=== PATIENT | female | born 1970 | race Caucasian/White ===

== ENCOUNTER → 2016-04-20 | Outpatient (CLI) | payer OTHER ==
[~2016-04-20] MED LIST: ATEN-173 PO
--- NOTE | 2016-04-20 12:43 | MAMMOGRAPHY REPORT ---
BILATERAL DIGITAL SCREENING MAMMOGRAM TOMOSYNTHESIS WITH CAD: 04/20/2016 CLINICAL HISTORY: Routine screening. Patient has no complaints. TECHNIQUE: Breast tomosynthesis in addition to standard 2D mammography was performed. Current study was also evaluated with a Computer Aided Detection (CAD) system. COMPARISON: Comparison is made to exams dated: 04/29/2015 ultrasound biopsy, 04/29/2015 ultrasound, mammogram, 01/27/2014 mammogram, 01/22/2013 mammogram, and 01/11/2012 mammogram - [facility]. BREAST COMPOSITION: The tissue of both breasts is almost entirely fatty. FINDINGS: There are no suspicious masses, calcifications, or areas of architectural distortion note d in either breast. There has been no significant interval change compared to prior exams. A biops y marker clip is again noted in the left lower inner quadrant. IMPRESSION: ACR BI-RADS CATEGORY 2: BENIGN There is no mammographic evidence of malignancy. A 1 year screening mammogram is recommended. The p atient will receive written notification of the results. Approximately 10% of breast cancers are not detected with mammography. A negative mammographic repor t should not delay biopsy if a clinically suggestive mass is present. Holley Nobles M.D. /:04/20/2016 07:49:07 Hoop Expander: Mayra Kang, [facility] letter sent: Normal 1/2 BI-RADS Code: ACR BI-RADS Category 2: Benign
== END | disposition home or self-care (01) ==
LOC: C.MAMM 07:18
PROVIDERS: ATTEND Family Medicine
DX: Z12.31 Encounter for screening mammogram for malignant neoplasm of breast (principal)

== ENCOUNTER → 2016-08-23 | Outpatient (CLI) | payer OTHER ==
[2016-08-23 12:48] LABS: HEMATOCRIT 39.4 % (37-47); MEAN CELL VOLUME 88.1 fL (80-100); MEAN CORPUSCULAR HEMOGLOBIN 28.6 pg (25-34); MEAN CORPUSCULAR HGB CONC 32.5 g/dl (32-36); PLATELET COUNT 330 K/uL (130-400); RED BLOOD COUNT 4.47 M/uL (4.2-5.4); WHITE BLOOD COUNT 8.27 K/uL (4.8-10.8)
[2016-08-23 12:58] LABS: BLOOD UREA NITROGEN 17 mg/dl (7-18); BUN/CREATININE RATIO 24.9 (10-20); CARBON DIOXIDE 26 mmol/L (21-32); CHLORIDE 107 mmol/L (98-107); CHOLESTEROL 202 mg/dl (0-200); CREATININE 0.68 mg/dl (0.60-1.20); GLUCOSE 77 mg/dl (70-99); POTASSIUM 3.8 mmol/L (3.5-5.1); SODIUM 141 mmol/L (136-145); TRIGLYCERIDES 113 mg/dl (0-150); VERY LOW DENSITY LIPOPROT CALC 23 mg/dl
[2016-08-23 13:00] LABS: CALCIUM 9.2 mg/dl (8.5-10.1)
[2016-08-23 13:02] LABS: CHOLESTEROL/HDL RATIO 3.9; HDL CHOLESTEROL 52 mg/dl; LDL CHOLESTEROL CALCULATED 127 mg/dl
[2016-08-23 13:37] LABS: COMPLETE YES; EOS % 2.3 %; IG% 0.1 %; LYMPH % 28.3 %; LYMPH ABS # 2.34 K/uL (1.2-3.4); NEUT % 63.3 %
== END | disposition home or self-care (01) ==
LOC: C.LABBFT 07:57
PROVIDERS: ATTEND Family Medicine
DX: I10 Essential (primary) hypertension (principal); E61.1 Iron deficiency; E78.4 Other hyperlipidemia; E53.8 Deficiency of other specified B group vitamins; E55.9 Vitamin D deficiency, unspecified

== ENCOUNTER → 2017-04-26 | Outpatient (CLI) | payer OTHER ==
--- NOTE | 2017-04-26 13:26 | MAMMOGRAPHY REPORT ---
BILATERAL DIGITAL SCREENING MAMMOGRAM TOMOSYNTHESIS WITH CAD: 04/26/2017 CLINICAL HISTORY: Routine screening. Patient has no complaints. TECHNIQUE: Breast tomosynthesis in addition to standard 2D mammography was performed. Current study was also evaluated with a Computer Aided Detection (CAD) system. COMPARISON: Comparison is made to exams dated: 04/20/2016 mammogram, 04/29/2015 mammogram, 04/15/2015 m ammogram, 01/27/2014 mammogram, 01/22/2013 mammogram, and 01/11/2012 mammogram - [facility]. BREAST COMPOSITION: The tissue of both breasts is almost entirely fatty. FINDINGS: No suspicious masses, calcifications, or areas of architectural distortion are noted in ei ther breast. There has been no significant interval change compared to prior exams. A biopsy marker clip is again noted within the left lower inner quadrant. IMPRESSION: ACR BI-RADS CATEGORY 2: BENIGN There is no mammographic evidence of malignancy. A 1 year screening mammogram is recommended. The pa tient will receive written notification of the results. Approximately 10% of breast cancers are not detected with mammography. A negative mammographic report should not delay biopsy if a clinically suggestive mass is present. Holley Nobles M.D. /:04/26/2017 07:44:41 Stem Threshing Machine Operator: Mayra ZAVALA(Sagrario)(M), [facility] letter sent: Normal 1/2 BI-RADS Code: ACR BI-RADS Category 2: Benign
== END | disposition home or self-care (01) ==
LOC: C.MAMM 07:21
PROVIDERS: ATTEND Internal Medicine
DX: Z12.31 Encounter for screening mammogram for malignant neoplasm of breast (principal)

== ENCOUNTER 2024-09-18 10:00 | Observation (INO) ==
--- NOTE | 2024-08-18 13:21 | PAT Medication Instructions ---
Medication Instructions Date of Service August 18, 2024 Home Medications Medication Instructions Recorded diclofenac sodium 1 % topical gel 2 gm topical QID #100 grams 01/14/19 (Voltaren) mupirocin 2 % topical ointment 1 applic topical BID #15 grams 05/23/22 hydrocodone-homatropine 5 mg-1.5 See Rx Instructions PO Q6H PRN 03/28/23 mg/5 mL oral solution (Hydromet) cough #250 mL sulfamethoxazole 800 1 tab PO BID 5 days #10 tabs 05/09/23 mg-trimethoprim 160 mg tablet (Bactrim DS) fluconazole 150 mg tablet 150 mg PO Q3D 2 doses #2 tabs 05/12/24 cholecalciferol (vitamin D3) 125 mcg (5,000 unit) tablet (Vitamin D3) 5,000 unit PO QAM cyanocobalamin (vitamin B-12) 1,000 mcg tablet (Vitamin B-12) 1,000 mcg PO QAM ferrous sulfate 325 mg (65 mg iron) tablet (iron) 325 mg PO 3XWK losartan 50 mg-hydrochlorothiazide 12.5 mg tablet 1 tab PO QAM ibuprofen 600 mg tablet 600 mg PO Q6H PRN Pain naproxen sodium 220 mg tablet (Aleve) 440 mg PO BID PRN Pain diclofenac sodium 1 % topical gel (Voltaren) 2 gm topical QID mupirocin 2 % topical ointment 1 applic topical BID hydrocodone-homatropine 5 mg-1.5 mg/5 mL oral solution (Hydromet) See Rx Instructions PO Q6H PRN cough sulfamethoxazole 800 mg-trimethoprim 160 mg tablet (Bactrim DS) 1 tab PO BID fluconazole 150 mg tablet 150 mg PO Q3D docusate sodium 100 mg tablet 100 mg PO DAILY rizatriptan 10 mg tablet 10 mg PO UD PRN Migraine Headache rosuvastatin 10 mg tablet 10 mg PO QAM tirzepatide (weight loss) 5 mg/0.5 mL subcutaneous pen injector (Zepbound) 5 mg subcut WK valacyclovir 1 gram tablet 1,000 mg PO TID PRN Cold Sores Continue as directed sulfamethoxazole 800 mg-trimethoprim 160 mg tablet (Bactrim DS) 1 tab PO BID fluconazole 150 mg tablet 150 mg PO Q3D ASK your surgeon for instructions ibuprofen 600 mg tablet 600 mg PO Q6H PRN Pain naproxen sodium 220 mg tablet (Aleve) 440 mg PO BID PRN Pain STOP taking 24 hours before surgery diclofenac sodium 1 % topical gel (Voltaren) 2 gm topical QID mupirocin 2 % topical ointment 1 applic topical BID STOP 7 days prior to surgery tirzepatide (weight loss) 5 mg/0.5 mL subcutaneous pen injector (Zepbound) 5 mg subcut WK DO NOT take the morning of surgery cholecalciferol (vitamin D3) 125 mcg (5,000 unit) tablet (Vitamin D3) 5,000 unit PO QAM cyanocobalamin (vitamin B-12) 1,000 mcg tablet (Vitamin B-12) 1,000 mcg PO QAM ferrous sulfate 325 mg (65 mg iron) tablet (iron) 325 mg PO 3XWK losartan 50 mg-hydrochlorothiazide 12.5 mg tablet 1 tab PO QAM docusate sodium 100 mg tablet 100 mg PO DAILY hydrocodone-homatropine 5 mg-1.5 mg/5 mL oral solution (Hydromet) See Rx Ins tructions PO Q6H PRN cough Take morning of surgery With a small sip of water, OTHERWISE NOTHING TO EAT OR DRINK AFTER MIDNIGHT: rizatriptan 10 mg tablet 10 mg PO UD PRN Migraine Headache (if needed) rosuvastatin 10 mg tablet 10 mg PO QAM valacyclovir 1 gram tablet 1,000 mg PO TID PRN Cold Sores (if needed) Take evening before surgery hydrocodone-homatropine 5 mg-1.5 mg/5 mL oral solution (Hydromet) See Rx Instructions PO Q6H PRN cough (if needed) rizatriptan 10 mg tablet 10 mg PO UD PRN Migraine Headache (if needed) valacyclovir 1 gram tablet 1,000 mg PO TID PRN Cold Sores (if needed) Other Notes If you have any questions please call us at [phone] or [phone] or [phone] or [phone]
--- NOTE | 2024-08-25 15:03 | Anesthesiology Consultation ---
Date of Service August 25, 2024 Assessment & Plan (1) Encounter for pre-operative examination: Chart Review Chart Review: Acceptable Risk for Surgery and Patient seen in Pre Admission Testing - Check test AM DOS - Patient is not an ideal OPJ candidate- currently 23 hour obs - Patient takes Zepbound for weight loss. Patient informed to stop Zepbound 7 days prior to surgery. Last dose of Zepbound scheduled 09/07/24. Will be off Zepbound x 11 days prior to DOS on 09/18/24 Per PAT appt on 08/25/24, no recent illness/disease exposures, illness related symptoms, or recent illness/disease positive tests. Will leave to surgeon's discretion if preop Covid testing needed Teaching & Discussion Pre-Anesthesia Teaching/Discussion Notes: Instructed NPO after midnight before surgery,except medications with 15 cc of water. Medication instructions provided according to the PAT guidelines. History Surgery Operation Date: 09/18/24 07:00 Proposed Procedures p Right Total Knee Arthroplasty - Florentin Barrios, DO Height/Weight Height: 5 ft 7 in Weight: 156.1 kg Allergies Allergy/AdvReac Type Severity Reaction Status Date / Time No Known Allergies Allergy Unknown Verified 08/14/24 13:23 Medications Home Medications Medication Instructions Recorded Confirmed Last Taken cholecalciferol (vitamin D3) 125 5,000 unit PO QAM 01/17/18 08/14/24 02/06/18 06:00 mcg (5,000 unit) tablet (Vitamin D3) cyanocobalamin (vitamin B-12) 1,000 mcg PO QAM 01/17/18 08/14/24 02/06/18 06:00 1,000 mcg tablet (Vitamin B-12) ferrous sulfate 325 mg (65 mg 325 mg PO 3XWK 01/17/18 08/14/24 02/05/18 06:00 iron) tablet (iron) losartan 50 mg-hydrochlorothiazide 1 tab PO QAM 01/17/18 08/14/24 02/06/18 06:00 12.5 mg tablet ibuprofen 600 mg tablet 600 mg PO Q6H PRN Pain 11/21/18 08/14/24 Unknown naproxen sodium 220 mg tablet 440 mg PO BID PRN Pain 11/21/18 08/14/24 Unknown (Aleve) diclofenac sodium 1 % topical gel 2 gm topical QID #100 grams 01/14/19 08/14/24 Unknown (Voltaren) mupirocin 2 % topical ointment 1 applic topical BID #15 grams 05/23/22 08/14/24 Unknown hydrocodone-homatropine 5 mg-1.5 See Rx Instructions PO Q6H PRN 03/28/23 08/14/24 Unknown mg/5 mL oral solution (Hydromet) cough #250 mL docusate sodium 100 mg tablet 100 mg PO DAILY 08/14/24 08/14/24 Unknown rizatriptan 10 mg tablet 10 mg PO UD PRN Migraine Headache 08/14/24 08/14/24 Unknown rosuvastatin 10 mg tablet 10 mg PO QAM 08/14/24 08/14/24 Unknown tirzepatide (weight loss) 5 mg/0.5 5 mg subcut WK 08/14/24 08/14/24 Unknown mL subcutaneous pen injector (Zepbound) valacyclovir 1 gram tablet 1,000 mg PO TID PRN Cold Sores 08/14/24 08/14/24 Unknown Past Medical History Medical History (Updated 08/26/24 @ 10:45 by Cari Hurst PA-C) Arthritis Constipation medication induced (due to Zepbound) History of COVID-17 June 2022- symptoms resolved History of paroxysmal supraventricular tachycardia had ablation in 2010, no issues since, no longer has to see cardio HTN (hypertension) Hx of migraines Iron deficiency anemia hx of JOE (obstructive sleep apnea) Hx of sleep study- mild JOE - no device needed- has since lost weight Exercise / Class Metabolic Activity II 4-5 Yardwork/Stairs/Walk up hill (one flight of stairs - no chest pain or SOB ) Past Family History Family History Father Type 2 diabetes mellitus Mother Type 2 diabetes mellitus Past Surgical History Surgical History History of adenoidectomy History of arthroscopy RT KNEE History of cholecystectomy History of colonoscopy History of gastric bypass RUEL N Y (2002) History of radiofrequency ablation procedure for cardiac arrhythmia 2010 (PSVT) History of right hip replacement Oct 2019 History of tonsillectomy History of tooth extraction Hx of LASIK BILATERAL Nausea and vomiting after administration of anesthetic agent Past Anesthesia History No Hx of Anesthesia Complications (with exception to PONV ) and No Family Hx of Anesthesia Complications History of PONV History of PONV (improved when pretreated with IV anti nausea medication) and Hx of Motion Sickness (mild ) Social History Smoking Status: Never smoker Do You Dip or Chew Tobacco: No Hx Alcohol Use: Yes Alcohol type: wine alcohol intake frequency: holidays/special occasions only Hx Substance Use: No substance use type: does not use Review of Systems Patient denies chest pain, shortness of breath, dyspnea on exertion, reflux, cough, wheezing, palpitations. No hx of seizures, stroke, IL. No hx of blood clots or blood transfusions Physical Exam Vital Signs VITALS BP 121/82 P 69 TEMP 97.7 SP02 98% RESP 16 Constitutional no acute distress ENMT Mouth: no TMJ clicking Thyromental Distance: > or= 3.5 Finger Breadths (3.5) Mallampati Class: I Permanent implants to side teeth and molars Crowns to side teeth and molars Neck neck extension not limited Respiratory normal respiratory effort; no respiratory distress Auscultation: lungs clear to auscultation bilaterally; no wheezes Cardiovascular Rate/Rhythm: regular rate and regular rhythm Heart Sounds: no murmur Vessels: no carotid bruit Musculoskeletal Spine: no pain with cervical ROM Extremities: extremities normal to inspection Psychiatric Orientation: alert Lab Results Anesthesia Preop Results Results Anesthesia Widget: WBC 9.90 K/ul (4.8-10.8) 08/25/24 Hgb 13.0 g/dl (12.0-16.0) 08/25/24 Hct 39.6 % (37.0-47.0) 08/25/24 Plt 300 K/uL (130-400) 08/25/24 Na 139 mmol/L (136-145) 08/25/24 K 4.4 mmol/L (3.5-5.1) 08/25/24 Cl 103 mmol/L (98-107) 08/25/24 CO2 30 mmol/L (21-32) 08/25/24 BUN 16 mg/dl (6-23) 08/25/24 Creat 0.64 mg/dl (0.6-1.2) 08/25/24 Glucose Level 99 mg/dl (70-99(Fasting)) 08/25/24 PT 10.4 Seconds (9.0-12.0) 08/25/24 PTT 29 Seconds (21-31) 08/25/24 INR 1.0 (0.9-1.1) 08/25/24 Blood Type O Negative 08/25/24 Antibody Screen NEGATIVE 08/25/24 Testing Electrocardiogram Date: 08/25/24 Findings: + NSR @ (63bpm) Poor R wave progression, consider anterior IL vs lead placement vs LVH When compared to EKG from Jan 24, 2018- no significant change was found per cardio Chest X-Ray Date: 08/25/24 Findings: + NAD
[~2024-09-18 10:00] MED LIST changes: -ATEN-173 PO; +ROPIVACAINE 0.5% 5 MG/ML 30 ML VIAL ONE
[2024-09-18] MEDS ORDERED: MIDAZOLAM HCL 1 MG/ML 2ML VIAL ONE ×2 (10:14→12:31)
[2024-09-18] MEDS ORDERED: ONDANSETRON INJ 2 MG/ML 2 ML VIAL ONE (10:14)
[2024-09-18] MEDS ORDERED: PROPOFOL IV EMULSION 10 MG/ML 20 ML VIAL IV ONE ×5 (10:14→13:13)
[2024-09-18] MEDS: LR 60ML/HR IV SCH (10:28)
[2024-09-18] MEDS: FAMOTIDINE 20 MG TAB PO SCH (10:28)
[2024-09-18] MEDS: dexAMETHasone**PF** 10 MG/ML VIAL IV SCH (10:28)
[2024-09-18] MEDS: ACETAMINOPHEN 500 MG TAB PO SCH ×2 (10:28→21:18)
[2024-09-18] MEDS: GABAPENTIN 900 MG DOSE PO SCH (10:28)
--- NOTE | 2024-09-18 11:05 | History & Physical Bridge Note ---
Date of Service September 18, 2024 History & Physical Bridge Note I have examined the patient, reviewed the History & Physical and in the interval since the performance of the History & Physical I have noted the following changes of clinical significance: no changes noted
[2024-09-18] MEDS: LR 500ML BOLUS, THEN 15ML/HR IV SCH (11:08)
[2024-09-18] MEDS: TRANEXAMIC ACID 1,000 MG **IV Pre-op IV SCH (12:06)
[2024-09-18] MEDS: ceFAZolin 3000MG 3,000 MG/72.5 ML BAG IV SCH (12:25)
[2024-09-18] MEDS ORDERED: ePHEDrine sulfate 50 MG/ML AMP IV PRN (12:44)
[2024-09-18] MEDS ORDERED: HYDROmorphone INJ 1 MG/ML SYRINGE IV PRN (12:44)
[2024-09-18] MEDS ORDERED: ATROPINE SULFATE 0.1 MG/ML 10ML SYR IV PRN (12:44)
[2024-09-18] MEDS ORDERED: ONDANSETRON INJ 2 MG/ML 2 ML VIAL IV PRN ×2 (12:44→15:56)
[2024-09-18] MEDS ORDERED: KETOROLAC 30 MG/ML VIAL IV PRN (12:44)
[2024-09-18] MEDS: ORTHO JOINT ANESTHETIC ONE (12:47)
[2024-09-18] MEDS: ROPIV 0.5% 246mg, Ketorolac 30mg, EPINEPHrine 0.5mg in NSS INFIL SCH (12:47)
[2024-09-18] MEDS: TRANEXAMIC ACID 1,000 MG **IV Intra-op IV SCH (13:35)
--- NOTE | 2024-09-18 13:40 | Operative Report ---
PG Post Operative Report Pre & Post Diagnosis Operation Date: 09/18/24 12:00 Pre-Op Diagnosis: Right Knee Arthritis Post-Op Diagnosis: Right Knee Arthritis I identified the patient and participated in the time-out.: Yes Procedure Operation Date: 09/18/24 12:00 Actual Procedures p Right Total Knee Arthroplasty(Right) - Florentin Barrios DO Surgeon Florentin Barrios DO Certified Lactation Educator Von Antunez PA-C Estimated Blood Loss 50 Findings Consistent with Post-Op Diagnosis Specimens Right femoral tibial Description of Procedure Implants used: I used a Taiwo Persona total knee arthroplasty system with a size 8 standard PS femur, E tibia, 28 oval patella, and a size 10 CPS polyethylene bearing. All components were cemented in place with Biomet cement. Cari arrived [facility] for the above procedure. She was seen in the preoperative holding area and the operative extremity was identified and signed. She was given a preoperative antibiotic, TXA, a spinal anesthetic and an adductor nerve block. She was taken back to the operating room and laid on the table in supine position. She was given basic sedation. The operative knee was then prepped and draped in sterile fashion. A timeout was done, and the patient and the operative extremity was properly identified. A midline incision was made directly over the patella. Dissection was taken down to the extensor mechanism. A medial parapatellar arthrotomy was used. The medial retinaculum was released and the fat pad was mostly excised. The knee was flexed and the ACL, PCL, and meniscus were removed. A drill was sent down the center of the femoral canal followed by an intramedullary ceci. Off that ceci a distal femoral cutting block was placed. 9 mm was resected off the distal femur at 5 of valgus. A posterior referencing AP sizing guide was then placed on the distal femur. The femur measured to be a size 8. 2 drill holes were placed in 3 of external rotation. A 4-in-1 cutting block was then impacted into place. Anterior, posterior, and chamfer cuts were then made. The proximal tibia was then exposed. An external tibial alignment guide was placed. A tibial cut guide was then anchored in place and the proximal tibia was then resected. The posterior aspect of the knee was then opened up and any additional meniscus fragments and osteophytes were removed. The tibia measured to be a size E. The tibial plate was then placed in the appropriate rotation and the tibia was drilled and punched. Trial components were then placed. I used a size 12 CPS polyethylene insert. The knee was brought through a full range of motion and felt to be stable. The peg holes for the femoral component were then drilled. The patella was then everted and 9 mm was resected off the posterior aspect of the patella. The patella measured to be a size 28 oval. 3 peg holes were then drilled. A trial patella was placed. The knee was once again brought through a full range of motion and felt to be stable. Trial components were then removed. The surrounding soft tissues were injected with 100 cc of an orthopedic pain control cocktail. All components were then cemented into place with Biomet cement. The final polyethylene insert was then snapped into place. Once cement was dry the tourniquet was deflated. Hemostasi s was obtained. A dilute betadyne lavage was then done for 3 minutes. The joint was then irrigated with normal saline solution. The medial parapatellar arthrotomy was then closed with #1 Vicryl suture. The skin was closed with 2-0 Vicryl, 3-0V lock suture, and yael. A soft compressive dressing was placed. She was then transferred to a hospital bed and taken to the postanesthesia care unit in stable condition. She tolerated the procedure well. Von Antunez PA-C, was present for the entire procedure. He was critical for patient positioning, prepping, draping, retraction exposure, wound closure and application of sterile dressing. I attest to the content of the Intraoperative Record and any orders documented therein. Any exceptions are noted below.
--- NOTE | 2024-09-18 14:38 | Anesthesiology Progress Note ---
Date of Service September 18, 2024 Anesthesia Post Procedure Vital Signs Vital Signs: Temp Pulse Pulse Resp BP Pulse Ox O2 Del Method 09/18/24 14:30 53 L 12 134/86 98 Room Air 09/18/24 14:20 59 L 18 117/82 97 Room Air 09/18/24 14:16 36.0 C L 60 14 127/84 94 Room Air 09/18/24 10:20 36.5 C 68 20 139/83 98 Room Air Pain Intensity Right Knee: Pain Intensity: 6 Transfer of Care Handoff Completed per policy Notes Mental Status: alert / awake / arousable Patient Amnestic to Procedure: Yes Nausea / Vomiting: adequately controlled Pain: adequately controlled Airway Patency, RR, SpO2: stable & adequate BP & HR: stable & adequate Hydration State: stable & adequate Neuraxial Anesthesia: was administered and sensory block is resolving Anesthetic Complications: no major complications apparent
--- NOTE | 2024-09-18 15:33 | XRay Report ---
XR knee RT 1 or 2V routine CLINICAL HISTORY: Surgical Post Op COMPARISON: None FINDINGS: Right knee prosthesis shows no hardware complication. There is expected soft tissue gas. S kin yael are present anteriorly. IMPRESSION: Unremarkable postoperative exam. ACT 112: Negative or not required by law. Electronically signed by: Jerald Warren M.D. 09/18/2024 3:31 PM
[2024-09-18] MEDS ORDERED: NALOXONE HCL 0.4 MG/1 ML VIAL/CARP IV PRN (15:56)
[2024-09-18] MEDS ORDERED: METOCLOPRAMIDE HCL INJ 5 MG/ML 2 ML VIAL IV PRN (15:56)
[2024-09-18] MEDS ORDERED: MAGNESIUM HYDROXIDE SUSP 30 ML UDC PO PRN (15:56)
[2024-09-18] MEDS ORDERED: bisacodyL 10 MG SUPP PR PRN (15:56)
[2024-09-18] MEDS ORDERED: diphenhydrAMINE Capsule 25 MG CAP PO PRN (15:56)
[2024-09-18] MEDS ORDERED: RIZATRIPTAN BENZOATE 10 MG TAB PO PRN (15:56)
[2024-09-18] MEDS ORDERED: HYDROmorphone INJ 0.5 MG/0.5 ML SYR IV PRN (15:56)
[2024-09-18] MEDS: LOSARTAN/HCTZ 50/12.5MG TAB PO SCH (16:48)
[2024-09-18] MEDS: KETOROLAC TROMETHAMINE 15 MG/ML VIAL IV SCH (16:48)
[2024-09-18] MEDS: SODIUM CHLORIDE 0.9% 1,000 ML IV SCH (16:48)
[2024-09-18] MEDS: oxyCODONE HCL IR 5 MG TAB (IMMEDIATE RELEASE) PO PRN (17:50)
[2024-09-18] MEDS: SENNA 8.6 MG TAB PO SCH (19:50)
[2024-09-18] MEDS: ASPIRIN 81 MG ECTAB PO SCH (21:20)
[2024-09-18] MEDS: ceFAZolin 2000MG 2,000 MG/15 ML SYR IV SCH (21:20)
[2024-09-18] MEDS: DOCUSATE SODIUM 100 MG CAP PO SCH (21:20)
[2024-09-19 06:06] LABS: Hematocrit (blood only) 32.6 % (37.0-47.0); Hemoglobin 11.2 g/dl (12.0-16.0); Mean Corpuscular Hemoglobin 29.5 pg (25.0-34.0); Mean Corpuscular Hgb Conc 34.4 g/dL (32.0-36.0); Mean Corpuscular Volume 85.8 fL (80.0-100.0); Mean Platelet Volume 9.9 fL (9.4-12.4); Platelet Count 304 K/uL (130-400); RDW Coefficient of Variation 12.8 % (11.5-14.5); RDW Standard Deviation 39.9 fL (36.4-46.3); White Blood Count 17.88 K/ul (4.8-10.8)
[2024-09-19 06:20] LABS: BUN Creatinine Ratio 26.7 (10-20); Calcium 8.4 mg/dl (8.6-10.3); Creatinine Clr Calc Pharmacy 175.7 ml/min; Potassium 3.6 mmol/L (3.5-5.1)
[2024-09-19 07:58] VITALS: BP 138/87; PULSE 71; RESP 18; TEMP 97.7; O2SAT 98
[2024-09-19] MEDS: ROSUVASTATIN CALCIUM 10 MG TAB PO SCH (08:57)
[2024-09-19] MEDS: MULTIVITAMIN TAB PO SCH (08:57)
[2024-09-19] MEDS: dexAMETHasone 4 MG TAB PO SCH (08:57)
[2024-09-19] MEDS: FAMOTIDINE 20 MG TAB PO SCH (10:10)
--- NOTE | 2024-09-19 10:43 | Orthopedic Progress Note ---
Date of Service September 19, 2024 Assessment & Plan (1) Status post total right knee replacement: Overall she is doing very well. She is not having much pain in the right knee. She will be seen by physical therapy today for ambulation and range of motion exercises. She is on aspirin for DVT prophylaxis. She can be discharged to home later today. She will follow-up orthopedics in 2 weeks. Brandon Alcala was seen and examined at bedside this morning. Overall she is doing very well. She is not having much pain in the right knee. She has been up and ambulating to the bathroom. She has no complaints.. Review of Systems All systems reviewed & are unremarkable except as noted in HPI & below. Physical Exam On physical exam of the right knee, the dressing is clean and dry. The Prevena VAC is in place. Her leg is out full extension. She is neurovascular intact.. Results & Data Results & Data Laboratory Results . Diagnostic Findings Postoperative x-rays of the right knee show the prosthesis to be in anatomic alignment without any evidence of fracture, dislocation, or loosening.. PG Care Time/CCT Total # of Minutes Spent Total Time Spent with Patient: Total time spent is greater than 50% in coordination of care (as documented) at patient's floor/unit and/or counseling patient: Coding Level of Care Code 36122 Post Operative Follow-Up Diagnoses Status post total right knee replacement Z96.651
== END 2024-09-19 12:45 | disposition home or self-care (01) ==
LOC: ASU 10:00 → 3E 10:00